=== PATIENT | female | born 1985 | race African-American/Black ===

== ENCOUNTER 2023-03-09 20:20 | Emergency (ER) | payer OTHER ==
[~2023-03-09] VITALS: Ht 157.5 cm; Wt 86.5 kg
[2023-03-09] MEDS ORDERED: ONDANSETRON HCL 4 MG/2 ML VIAL IV ONE (22:45)
[2023-03-09] MEDS ORDERED: HYDROmorphone HCL 2 MG/ML VL/or syr IV ONE (22:45)
[2023-03-09 23:03] LABS: Eosinophils # (auto) 0 10 ^3/uL (0-0.8); Eosinophils % (auto) 0.6 % (0.0-7.0); Hemoglobin 11.2 g/dL (12.2-16.2); White Blood Cell 6.2 10^3/uL (4.4-10.8)
[2023-03-09 23:05] LABS: Basophils # (auto) 0 10 ^3/uL (0-0.2); Basophils % (auto) 0.8 % (0.0-2.0); Hematocrit 33.5 % (36.0-46.0); Lymphocytes # (auto) 1.5 10 ^3/uL (0.4-5.4); Mean Corpuscular Hemoglobin 25.4 pg (28.0-32.0); Mean Corpuscular Hgb Conc. 33.3 g/dL (32.0-36.0); Mean Corpuscular Volume 76.2 fL (80.0-100.0); Monocytes # (auto) 0.5 10 ^3/uL (0-1.3); Monocytes % (auto) 7.5 % (0.0-12.0); Neutrophils # (auto) 4.2 10 ^3/uL (1.6-8.6); Neutrophils % (auto) 67.1 % (37.0-80.0); Nucleated Red Blood Cells % 0.2 %; Red Cell Distribution Width 16.5 % (11.8-14.3)
[2023-03-09] MEDS ORDERED: DexAMETHasone SOD PHOS 10MG/1ML VIAL INJ IV ONE (23:30)
[2023-03-09 23:34] LABS: Albumin 3.9 g/dL (3.4-5.0); BUN/Creatinine Ratio 11.8 (10.0-20.0); Potassium 3.6 mmol/L (3.5-5.1)
[2023-03-09 23:37] LABS: Bilirubin, Total 0.2 mg/dL (0.2-1.0); Total Protein 8.1 g/dL (6.4-8.2)
[2023-03-10] MEDS ORDERED: HYDROmorphone HCL 2 MG/ML VL/or syr IV ONE (02:15)
[2023-03-10 05:00] VITALS: BP 125/73
[2023-03-10] MEDS ORDERED: PERCOT PO (05:22)
[2023-03-10] MEDS ORDERED: PRED20TA2 PO (05:22)
[2023-03-10] MEDS ORDERED: OXYCODONE W/ ACETAMINOPHEN 5/325MG TABLET PO ONE (05:45)
== END 2023-03-10 05:51 | disposition home or self-care (01) ==
LOC: EDBD 20:20 → ER 20:20
DX: I82.0 Budd-Chiari syndrome (principal); R10.2 Pelvic and perineal pain
CPT/HCPCS: 36415; 70450; 71045; 80053; 84484; 84702; 85025; 93005; 96374; 96375; 96376; 99285; J1100; J1170; J2405